=== PATIENT | male | born 1970 | race African-American/Black ===

== ENCOUNTER 2020-12-30 17:24 | Emergency (ER) | payer OTHER ==
[~2020-12-30] VITALS: Ht 175.3 cm; Wt 66.2 kg
[2020-12-30 19:04] LABS: BASOPHILS # (AUTO) 0.1 /CMM (0.0-0.2); BASOPHILS % (AUTO) 1.1 % (0.0-2.0); EOSINOPHILS % (AUTO) 3.7 % (0.0-6.0); HEMATOCRIT 40 % (39-51); HEMOGLOBIN 12.7 g/dL (13.5-17.5); LYMPHOCYTES # (AUTO) 1.8 /CMM (0.8-4.8); LYMPHOCYTES % (AUTO) 24.9 % (20.0-44.0); MEAN CORPUSCULAR HGB CONC 32 g/dl (31.0-36.0); MEAN CORPUSCULAR VOLUME 87 fL (80-96); MONOCYTES # (AUTO) 0.8 /CMM (0.1-1.30); MONOCYTES % (AUTO) 11.4 % (2.0-12.0); NEUTROPHILS # (AUTO) 4.3 /CMM (1.8-8.9); NEUTROPHILS % (AUTO) 58.9 % (43.0-81.0); PLATELET COUNT (AUTO) 377 /CMM (150-450); RED BLOOD CELL COUNT(AUTO) 4.57 MIL/uL (4.5-6.0); WHITE BLOOD COUNT (AUTO) 7.2 K/uL (4.3-11.0)
[2020-12-30 19:09] LABS: BILIRUBIN,URINE Negative (NEGATIVE); COLOR,URINE YELLOW (YELLOW); LEUKOCYTE ESTERASE ,URINE Negative (NEGATIVE); NITRITE, URINE Negative (NEGATIVE); PROTEIN,URINE Negative (NEGATIVE); UGLUCOSE Negative (NEGATIVE)
--- NOTE | 2020-12-30 19:13 | NUR ---
Patient came in to the er c/o SI run in front of a bus. On room air, breathing evenly and unlabored. Kept comfortable, will continue to monitor accordingly.
--- NOTE | 2020-12-30 19:14 | NUR ---
urine collected and sent to lab
[2020-12-30 19:17] LABS: ALANINE AMINOTRANSFERASE 25 U/L (12-78); ALBUMIN 3.5 g/dL (3.4-5.0); ALCOHOL, BLOOD < 3 mg/dL (0-0); ALKALINE PHOSPHATASE 102 U/L (46-116); ASPARTATE AMINOTRANSFERASE 16 U/L (15-37); BILIRUBIN,DIRECT 0.1 mg/dL (0.0-0.2); BILIRUBIN,TOTAL 0.2 mg/dL (0.2-1.0); CALCIUM, SERUM 9.5 mg/dL (8.5-10.1); CARBON DIOXIDE 31 mmol/L (21-32); CHLORIDE 99 mmol/L (98-107); CREATININE 1.2 mg/dL (0.6-1.3); GLUCOSE 130 mg/dL (74-106); SODIUM SERUM 140 mmol/L (136-145); TOTAL PROTEIN, SERUM 7.5 g/dL (6.4-8.2); UREA NITROGEN, BLOOD 20 mg/dL (7-18)
[2020-12-30 19:24] LABS: ACETAMINOPHEN < 2 ug/ml (10-30)
--- NOTE | 2020-12-30 20:03 | NUR ---
FACESHEET AND CLINICALS FAXED TO [facility].
--- NOTE | 2020-12-30 21:03 | NUR ---
CALL FROM [facility] INTAKE. [facility] [address] PECK. # FOR REPORT [phone].
--- NOTE | 2020-12-30 21:38 | NUR ---
[facility] CALL THE CAR CALLED FOR TRANSPORT. TRIP# [id number]
[2020-12-30 21:49] VITALS: BP 137/68
--- NOTE | 2020-12-30 21:49 | NUR ---
REPORT GIVEN TO MATA FLORENTINO. AWAITING TRANSPORT.
--- NOTE | 2020-12-30 22:23 | NUR ---
[facility] ETA 1081
--- NOTE | 2020-12-30 23:22 | NUR ---
[facility] AT BEDSIDE REPORT GIVEN TO EMT.
== END 2020-12-30 23:24 ==
LOC: ER 17:29
DX: R45.851 Suicidal ideations (principal); F14.10 Cocaine abuse, uncomplicated; E11.9 Type 2 diabetes mellitus without complications; R94.31 Abnormal electrocardiogram [ECG] [EKG]; Z82.49 Family history of ischemic heart disease and other diseases of the circulatory system; F32.9 Major depressive disorder, single episode, unspecified
CPT/HCPCS: 36415; 80048; 80076; 80299; 80307; 80320; 81003; 84484; 85025; 87426; 93005; 99285; C9803; G0480

== ENCOUNTER 2021-05-22 01:10 | Emergency (ER) | payer OTHER ==
[~2021-05-22] VITALS: Ht 175.3 cm; Wt 77.1 kg
--- NOTE | 2021-05-22 01:25 | NUR ---
URINE SAMPLE COLLECTED AND SENT TO LAB
--- NOTE | 2021-05-22 01:27 | NUR ---
[facility] AT BEDSIDE FOR BLOOD DRAW.
[2021-05-22 01:39] LABS: BASOPHILS # (AUTO) 0.1 K/uL (0.0-0.2); BASOPHILS % (AUTO) 0.8 % (0.0-2.0); EOSINOPHILS % (AUTO) 3.3 % (0.0-6.0); HEMATOCRIT 38 % (39-51); HEMOGLOBIN 12.2 g/dL (13.5-17.5); LYMPHOCYTES # (AUTO) 2.4 K/uL (0.8-4.8); MEAN CORPUSCULAR HGB CONC 32 g/dl (31.0-36.0); MEAN CORPUSCULAR VOLUME 87 fL (80-96); MONOCYTES # (AUTO) 1.1 K/uL (0.1-1.30); MONOCYTES % (AUTO) 11.4 % (2.0-12.0); NEUTROPHILS % (AUTO) 60.5 % (43.0-81.0); PLATELET COUNT (AUTO) 381 K/uL (150-450); RED BLOOD CELL COUNT(AUTO) 4.34 MIL/uL (4.5-6.0)
[2021-05-22 01:49] LABS: BILIRUBIN,URINE Negative (NEGATIVE); COLOR,URINE YELLOW (YELLOW); LEUKOCYTE ESTERASE ,URINE Negative (NEGATIVE); NITRITE, URINE Negative (NEGATIVE); PROTEIN,URINE Negative (NEGATIVE); UGLUCOSE Negative (NEGATIVE)
[2021-05-22 01:55] LABS: CALCIUM, SERUM 8.6 mg/dL (8.5-10.1); CARBON DIOXIDE 30 mmol/L (21-32); CHLORIDE 104 mmol/L (98-107); GLUCOSE 215 mg/dL (74-106); SODIUM SERUM 142 mmol/L (136-145); UREA NITROGEN, BLOOD 17 mg/dL (7-18)
[2021-05-22 01:59] LABS: ALANINE AMINOTRANSFERASE 35 U/L (12-78); ALBUMIN 3.5 g/dL (3.4-5.0); ALCOHOL, BLOOD < 3 mg/dL (0-0); ALKALINE PHOSPHATASE 177 U/L (46-116); ASPARTATE AMINOTRANSFERASE 34 U/L (15-37); BILIRUBIN,DIRECT 0.1 mg/dL (0.0-0.2); BILIRUBIN,TOTAL 0.3 mg/dL (0.2-1.0); TOTAL PROTEIN, SERUM 7.5 g/dL (6.4-8.2)
[2021-05-22 02:03] LABS: ACETAMINOPHEN 0 ug/ml (10-30)
--- NOTE | 2021-05-22 03:51 | NUR ---
CLINICAL AND FACESHEET FAXED TO [facility] INTAKE FOR VOLUNTARY PSYCH ADMISSION.
--- NOTE | 2021-05-22 05:45 | NUR ---
TRANSFER INFORMATION PT ACCEPTED AT [facility] ACCEPTING MD EL PT WILL GO TO UNIT 2 PHONE NUMBER FOR REPORT PLEASE CALL REPORT AT 8AM
--- NOTE | 2021-05-22 07:19 | NUR ---
[facility] CALL THE CAR CALLED FOR TRANSPORT. TRIP# [id number]. [facility] ETA 1000
--- NOTE | 2021-05-22 07:30 | NUR ---
THE PATIENT ALERT AND ORIENTED X3. DENIES PAIN. IN ROOM AIR AND DENIES SOB. RESPIRATION REGULAR AND UNLABORED. WILL CONTINUE TO MONITOR THE PATIENT. SITTER AT THE BEDSIDE.
--- NOTE | 2021-05-22 07:52 | NUR ---
THE PATIENT HAVING BREAKFAST. TOLERATES PROVIDED MEAL WELL.
--- NOTE | 2021-05-22 08:00 | NUR ---
REPORT GIVEN NURSE MARGOTH
--- NOTE | 2021-05-22 10:26 | NUR ---
Accounting Reconciliation Clerk Note: Per nursing, patient was already referred and accepted to [facility] for inpatient psychiatric hospitalization, voluntary admission. Ambulance was at bedside to transport patient to [facility]. No further SS interventions needed at this time.
--- NOTE | 2021-05-22 10:28 | NUR ---
THE PATIENT IS TRANSFERED TO [facility] IN STABLE CONDITION VIA ARRANGED TRANSPO.
[2021-05-22 10:30] VITALS: BP 132/67
== END 2021-05-22 10:30 ==
LOC: ER 01:15
DX: R45.851 Suicidal ideations (principal); E11.9 Type 2 diabetes mellitus without complications; F32.9 Major depressive disorder, single episode, unspecified; Z20.822 Contact with and (suspected) exposure to COVID-19
CPT/HCPCS: 36415; 80048; 80076; 80143; 80307; 80320; 81003; 85025; 87426; 99285; C9803; G0480

== ENCOUNTER 2021-07-15 09:29 | Emergency (ER) | payer OTHER ==
[~2021-07-15] VITALS: Ht 175.3 cm; Wt 79.4 kg
[2021-07-15 09:34] VITALS: BP 135/81
[2021-07-15 10:33] LABS: BASOPHILS # (AUTO) 0.1 K/uL (0.0-0.2); BASOPHILS % (AUTO) 0.5 % (0.0-2.0); EOSINOPHILS % (AUTO) 2.2 % (0.0-6.0); HEMATOCRIT 41 % (39-51); MEAN CORPUSCULAR HGB CONC 32 g/dl (31.0-36.0); MEAN CORPUSCULAR VOLUME 88 fL (80-96); MONOCYTES # (AUTO) 0.9 K/uL (0.1-1.30); MONOCYTES % (AUTO) 9.4 % (2.0-12.0); NEUTROPHILS # (AUTO) 6.3 K/uL (1.8-8.9); NEUTROPHILS % (AUTO) 66.9 % (43.0-81.0); PLATELET COUNT (AUTO) 353 K/uL (150-450); WHITE BLOOD COUNT (AUTO) 9.4 K/uL (4.3-11.0)
[2021-07-15 10:35] LABS: BILIRUBIN,URINE NEGATIVE (NEGATIVE); COLOR,URINE YELLOW (YELLOW); LEUKOCYTE ESTERASE ,URINE NEGATIVE (NEGATIVE); NITRITE, URINE NEGATIVE (NEGATIVE); PROTEIN,URINE NEGATIVE (NEGATIVE); UGLUCOSE >=1000 mg/dL (NEGATIVE)
[2021-07-15 10:43] LABS: CALCIUM, SERUM 8.9 mg/dL (8.5-10.1); CARBON DIOXIDE 28 mmol/L (21-32); CHLORIDE 101 mmol/L (98-107); GLUCOSE 343 mg/dL (74-106); POTASSIUM 3.8 mmol/L (3.5-5.1); SODIUM SERUM 136 mmol/L (136-145); UREA NITROGEN, BLOOD 13 mg/dL (7-18)
[2021-07-15 10:49] LABS: ALANINE AMINOTRANSFERASE 26 U/L (12-78); ALBUMIN 4.1 g/dL (3.4-5.0); ALCOHOL, BLOOD < 3 mg/dL (0-0); ALKALINE PHOSPHATASE 157 U/L (46-116); ASPARTATE AMINOTRANSFERASE 13 U/L (15-37); BILIRUBIN,DIRECT 0.1 mg/dL (0.0-0.2); BILIRUBIN,TOTAL 0.5 mg/dL (0.2-1.0)
[2021-07-15 10:50] LABS: ACETAMINOPHEN < 10 ug/ml (10-30)
[2021-07-15] MEDS ORDERED: METFORMIN 500 MG TABLET PO ONE (11:00)
[2021-07-15] MEDS ORDERED: METFORMIN 500 MG TABLET ONE (11:01)
--- NOTE | 2021-07-15 11:13 | NUR ---
Patient came in to the er c/o +SI "i want to jump in front of the bus", [facility] to [facility]. On room air, breathing evenly and unlabored. Kept comfortable, will continue to montior accordingly.
--- NOTE | 2021-07-15 11:35 | NUR ---
SS Consult: SS Consult requested for SI, drug abuse & homelessness. The pt. is a 51- year old Black male who presents to ED with C/O suicidal ideations for th past few days with plan to "jump off a bridge or run into moving traffic". The pt. appears unkempt is A&O X4 and makes poor eye contact. The pt. has blood shot eyes and probably under the influence. Pt.'s mood is depressed with flat affect. Pt. denies visual hallucinations and states he is hearing voices telling him to "kill myself". Pt. denies HI. RANULFO offered pt. voluntary admission to a psych facility for treatment and pt. is agreeable. RANULFO explored pt.'s mental health Hx. Pt. states he has been diagnosed in the past with a mental illness and does not remember the diagnosis. RANULFO explored pt.'s living situation. Pt. admits he has been experiencing homelessness for the past "few months". RANULFO explored pt.'s drug & ETOH use. Patient stated he uses Cocaine daily. RANULFO provided addiction resources and he accepted them. Pt. states he is ambulatory. RANULFO explored pt.'s support system. Pt. states he has no support system. Pt. states he receives Food stamps & General Relief. Plan: RANULFO referred pt. to [facility] for inpatient psychiatric treatment. Pt. refused to sign homeless waiver and it was placed in the chart. RANULFO provided pt. with homeless, and addiction resources and he accepted them : Year-round shelters: [facility] [place] [address] [place] [address] ; [place] [facility] [place] [address] [place] [address]; [facility] [id number] [facility] [address] Winter Shelters: [facility]Parrot Provider: [facility] [place] [place] Address: [address] [place], [address] # of Beds: 47 Population Served: [facility] 6 | [facility] Luly Yates Tanya Provider: [facility] Address: [address] [facility], [address] # of Beds: 66 Population Served: [facility] [place] Provider: First to Serve Address: [address] [facility], [address] # of Beds: 56 Population Served: [facility] [place] Provider: /Ms. [facility] Address: [address] [facility], [address] # of Beds: 49 Population Served: Coed SPA 8 | [facility] Provider: First to Serve Address: [address] [facility]. [place], [address] # of Beds: 37 Population Served: Coed Hygiene: [facility]: [address] [facility] ; [facility] [address] [facility] ; [facility] [address] [facility] [place] . Food Resources: [facility] at [facility]- [address] [facility]; Meet Each Need with Dignity ([facility]) [address] [facility]; [facility] Food Pantry [address] [facility]; [facility] 8[address] [facility]. Mental Health resources provided: [facility] [address] [place], [place] [phone] ; [facility] [address] [facility] [address], [place], [place] [phone] ; Rowena Haley [facility] [address] [place] [address] ; [facility] [address] [place], [place] [phone] Healthcare Clinics: [facility] [address] [facility], [address] [place]. [place] ; [facility] [address] [facility] [address] [place] [address]; [facility] [address] [facility] [place] [address] [phone]) [phone] Counseling--[facility] [address], [address] [place], [place] [address] (Specializes in in-depth psychotherapy for emotional distress: anxiety, depression, interpersonal conflicts, life transitions, childhood abuse) [facility] [address] [place] [address] (Assist with solving problem marital difficulties, separation & divorce, aging parents, & grief, chronic & terminal illness) [facility] [address] [place] [address] (Deal with loss & grief, anxiety, marital difficulties) Homebound/Mental Health Services [address] [facility] [address] [place] [address] (Provide in-home mental services to people who are incapable of leaving their homes) Organization for Needs of the Elderly Senior Service/Resource Center [address] [place] [address] [facility] [address] [place], [place] [address] PSYCHIATRIC OUTPATIENT SERVICES [facility] Partial Hospitalization and Intensive Outpatient Program (Managed Care and [place] Only)[address] Critical access hospital [phone] [facility] Partial Hospitalization and Outpatient Gvosaja36956 [facility] [address] [place], [place] [phone] [facility] Mental Health [place] Pjz[address] [facility] [address] [place], [place] [phone] [facility] Partial Hospitalization and Outpatient [id number] [place], [phone] Substance Abuse resources provided included: [facility] Substance Abuse Self-Helpline (SAS) ; CRI -HELP [address] [facility]. [place] [address] ; [facility] [address] [facility] [address] ; [facility] [address] [place] [address] ; [facility] [address] [facility] [address] ; [facility] 49[address] [facility] [address] ; [facility] 909 [facility] [phone] ; [facility] Substance Abuse Helpline(SAS)[facility] ; [facility] ; [facility] [place]; [facility] [place]; [facility] [place]; [facility] [place] Red; [facility] [place]; [facility] [place]; [facility] [place]; [facility]'s [place], [facility]. [place]; Alcoholics Anonymous -SFV; Ll-Nrda-Mywmndc ; Marijuana Anonymous -SFV; Na
--- NOTE | 2021-07-15 11:46 | NUR ---
FAXED CLINICALS TO [facility] INTAKE COIVD RESULT PENDING.
[2021-07-15 11:57] LABS: BACTERIA,URINE None seen /HPF (None Seen); RBC,URINE 0-2 /HPF (0-2); SQUAMOUS EPITHELIAL CELL,UR Rare /HPF (None Seen); WBC,URINE 0-2 /HPF (0-3)
--- NOTE | 2021-07-15 12:23 | NUR ---
RE-FAXED FACE SHEET TO [facility]
--- NOTE | 2021-07-15 13:55 | NUR ---
FAXED ALL CLINICALS TO [facility] INTAKE AGAIN.
[2021-07-15] MEDS ORDERED: INSULIN REGULAR, HUMAN 100 UNIT/ML 10 ML VIAL ONE (14:16)
[2021-07-15] MEDS ORDERED: INSULIN REGULAR, HUMAN 100 UNIT/ML 10 ML VIAL SQ ONE (14:30)
--- NOTE | 2021-07-15 19:04 | NUR ---
FAXED NEW CLINICALS TO [facility] BIPIN PRICE.
--- NOTE | 2021-07-16 01:19 | NUR ---
CALLED ART FROM [facility] INTAKE, WILL CALL BACK REGARDING BG.
--- NOTE | 2021-07-16 02:25 | NUR ---
ACCEPTED TO [facility] MD NUMBER [phone] UNIT 2
--- NOTE | 2021-07-16 02:28 | NUR ---
1 HOUR TO 1.5 HOUR FOR TRANSPORT VIA [facility] AT [facility].
--- NOTE | 2021-07-16 02:38 | NUR ---
try to call so bar[facility] to give report but was on hold for more than 5 mins will call again after
--- NOTE | 2021-07-16 03:01 | NUR ---
REPORT GIVEN TO MENDEZ COELLO FOR EBONY
--- NOTE | 2021-07-16 03:50 | NUR ---
REPORT GIVEN TO EMT, PT TRANSFERED.
== END 2021-07-16 04:35 ==
LOC: ER 09:33
DX: R45.851 Suicidal ideations (principal); F14.10 Cocaine abuse, uncomplicated; E11.9 Type 2 diabetes mellitus without complications; Z20.822 Contact with and (suspected) exposure to COVID-19
CPT/HCPCS: 36415; 80048; 80076; 80143; 80307; 80320; 81001; 82962 ×3; 85025; 87426; 96372; 99285; C9803; J1815; G0480

== ENCOUNTER 2021-07-21 19:15 | Emergency (ER) | payer OTHER ==
[~2021-07-21] VITALS: Ht 175.3 cm; Wt 63.5 kg
[2021-07-21 22:33] LABS: BASOPHILS # (AUTO) 0.1 K/uL (0.0-0.2); BASOPHILS % (AUTO) 0.8 % (0.0-2.0); EOSINOPHILS % (AUTO) 1.8 % (0.0-6.0); HEMATOCRIT 35 % (39-51); LYMPHOCYTES % (AUTO) 26.9 % (20.0-44.0); MEAN CORPUSCULAR HGB CONC 32 g/dl (31.0-36.0); MEAN CORPUSCULAR VOLUME 87 fL (80-96); MONOCYTES # (AUTO) 1.7 K/uL (0.1-1.30); MONOCYTES % (AUTO) 15.1 % (2.0-12.0); NEUTROPHILS # (AUTO) 6.2 K/uL (1.8-8.9); NEUTROPHILS % (AUTO) 55.4 % (43.0-81.0); PLATELET COUNT (AUTO) 365 K/uL (150-450); WHITE BLOOD COUNT (AUTO) 11.2 K/uL (4.3-11.0)
--- NOTE | 2021-07-21 22:47 | NUR ---
BIBS WALKED IN TO ER. TO ER BED 20. AAOX4. NOT IN RESP DISTRESS. AMBULATORY. CAME IN FOR SUICIDAL IDEATION WITH PLAN TO RUN INTO TRAFFIC. PT DENIES HOMICIDAL IDEATION. DENIES BOTH VISUAL NOR AUDITORY HALLUCINATIONS. PT'S IS GOWN, BELONGINGS PLACED IN LOCKER AND SITTER WITH IN SIGHT. WAS AT THE BEDSIDE FOR EVAL. ORDERS RE CEIVED, NOTED AND CARRIED OUT. URINE COLLECTED AND SENT TO LAB
[2021-07-21 23:08] LABS: BILIRUBIN,DIRECT 0.1 mg/dL (0.0-0.2); BILIRUBIN,TOTAL 0.4 mg/dL (0.2-1.0); CALCIUM, SERUM 8.5 mg/dL (8.5-10.1); CARBON DIOXIDE 25 mmol/L (21-32); CHLORIDE 104 mmol/L (98-107); CREATININE 1.2 mg/dL (0.6-1.3); GLUCOSE 325 mg/dL (74-106); POTASSIUM 4.3 mmol/L (3.5-5.1); SODIUM SERUM 138 mmol/L (136-145); UREA NITROGEN, BLOOD 19 mg/dL (7-18)
[2021-07-21 23:09] LABS: ACETAMINOPHEN < 2 ug/ml (10-30); ALANINE AMINOTRANSFERASE 24 U/L (12-78); ALBUMIN 3.5 g/dL (3.4-5.0); ALCOHOL, BLOOD < 3 mg/dL (0-0); ALKALINE PHOSPHATASE 207 U/L (46-116); ASPARTATE AMINOTRANSFERASE 16 U/L (15-37); TOTAL PROTEIN, SERUM 7.4 g/dL (6.4-8.2)
[2021-07-21 23:16] LABS: EOSINOPHILS % (MANUAL) 3 % (0-4); LYMPHOCYTES % (MANUAL) 35 % (16-48); MONOCYTES % (MANUAL) 13 % (0-11.0); NEUTROPHILS % (MANUAL) 49 (42-76)
[2021-07-21 23:34] LABS: BILIRUBIN,URINE NEGATIVE (NEGATIVE); COLOR,URINE YELLOW (YELLOW); LEUKOCYTE ESTERASE ,URINE NEGATIVE (NEGATIVE); NITRITE, URINE NEGATIVE (NEGATIVE); PROTEIN,URINE NEGATIVE (NEGATIVE); UGLUCOSE 500 MG/DL mg/dL (NEGATIVE)
[2021-07-21 23:37] LABS: BACTERIA,URINE None seen /HPF (None Seen); MUCUS,URINE Few /LPF (None Seen); RBC,URINE 0-2 /HPF (0-2); SQUAMOUS EPITHELIAL CELL,UR Few /HPF (None Seen); WBC,URINE 0-2 /HPF (0-3)
[2021-07-22] MEDS ORDERED: METFORMIN 850 MG TABLET PO ONE
[2021-07-22] MEDS ORDERED: METFORMIN 850 MG TABLET ONE (00:08)
--- NOTE | 2021-07-22 00:45 | NUR ---
Patient is resting comfortably in bed with eyes closed. Easily aroused. VSS
--- NOTE | 2021-07-22 02:35 | NUR ---
pt sleeping, attached to monitor and pox, vss
--- NOTE | 2021-07-22 04:15 | NUR ---
Patient is resting comfortably in bed with eyes closed. Easily aroused. VSS
--- NOTE | 2021-07-22 06:30 | NUR ---
Patient is resting comfortably in bed with eyes closed. Easily aroused. VSS
--- NOTE | 2021-07-22 15:27 | NUR ---
RANULFO called [facility] regarding status of admission and they stated that the pt.'s blood sugar levels are too high and would like updated levels to be faxed to them. RANULFO called ED and informed Jovan COELLO who will follow up.
[2021-07-22] MEDS ORDERED: LEVO25TA9 PO (17:28)
[2021-07-22] MEDS ORDERED: GLIP5TAB13 PO (17:28)
[2021-07-22] MEDS ORDERED: METF-442 PO (17:28)
[2021-07-22] MEDS ORDERED: INSULIN REGULAR, HUMAN 100 UNIT/ML 10 ML VIAL SQ ONE (17:30)
--- NOTE | 2021-07-22 18:51 | NUR ---
Accepted [facility] under the care of Dr. Padron
--- NOTE | 2021-07-22 18:55 | NUR ---
[facility] CALL[facility] ETA IS 45 MINS.
--- NOTE | 2021-07-22 18:56 | NUR ---
report given to Tho COELLO for franklyn.
--- NOTE | 2021-07-22 19:54 | NUR ---
[facility] AT [facility]EDSIDE FOR [facility]. PT IS IN STABLE CONDITION FOR TRANSPORT. PT IS AMBULATORY ON STEADY GAIT. REPORT GIVEN .
[2021-07-22 19:56] VITALS: BP 116/68
== END 2021-07-22 21:54 ==
LOC: ER 19:20
DX: R45.851 Suicidal ideations (principal); F14.10 Cocaine abuse, uncomplicated; D64.9 Anemia, unspecified; Z59.00 Homelessness unspecified; F17.200 Nicotine dependence, unspecified, uncomplicated; E11.65 Type 2 diabetes mellitus with hyperglycemia; Z20.822 Contact with and (suspected) exposure to COVID-19
CPT/HCPCS: 36415; 80048; 80076; 80143; 80307; 80320; 81001; 82962 ×2; 85007; 85025; 87426; 96372; 99285; C9803; J1815; G0480

== ENCOUNTER 2022-06-08 08:03 | Emergency (ER) | payer OTHER ==
[~2022-06-08] VITALS: Ht 175.3 cm; Wt 77.1 kg
[~2022-06-08 08:03] MED LIST: GLIP5TAB13 PO; LEVO25TA9 PO; METF-442 PO
[2022-06-08] MEDS ORDERED: ARIPIPRAZOLE 5 MG TABLET PO ONE (09:00)
[2022-06-08] MEDS ORDERED: ARIP5TAB10 PO (09:02)
[2022-06-08 09:25] LABS: BASOPHILS % (AUTO) 0.5 % (0.0-2.0); HEMATOCRIT 36 % (39-51); HEMOGLOBIN 11.4 g/dL (13.5-17.5); LYMPHOCYTES # (AUTO) 1.5 K/uL (0.8-4.8); LYMPHOCYTES % (AUTO) 14.1 % (20.0-44.0); MEAN CORPUSCULAR HGB CONC 32 g/dl (31.0-36.0); MEAN CORPUSCULAR VOLUME 85 fL (80-96); MONOCYTES # (AUTO) 1.2 K/uL (0.1-1.30); MONOCYTES % (AUTO) 11.1 % (2.0-12.0); NEUTROPHILS # (AUTO) 7.7 K/uL (1.8-8.9); NEUTROPHILS % (AUTO) 73.3 % (43.0-81.0); PLATELET COUNT (AUTO) 356 K/uL (150-450); RED BLOOD CELL COUNT(AUTO) 4.24 MIL/uL (4.5-6.0); WHITE BLOOD COUNT (AUTO) 10.5 K/uL (4.3-11.0)
[2022-06-08 09:40] LABS: BILIRUBIN,URINE NEGATIVE (NEGATIVE); COLOR,URINE YELLOW (YELLOW); LEUKOCYTE ESTERASE ,URINE NEGATIVE (NEGATIVE); NITRITE, URINE NEGATIVE (NEGATIVE); PROTEIN,URINE NEGATIVE (NEGATIVE); UGLUCOSE >=1000 mg/dL (NEGATIVE)
[2022-06-08 09:46] LABS: ALANINE AMINOTRANSFERASE 22 U/L (12-78); ALBUMIN 3.8 g/dL (3.4-5.0); ALCOHOL, BLOOD < 3 mg/dL (0-0); ALKALINE PHOSPHATASE 109 U/L (46-116); ASPARTATE AMINOTRANSFERASE 13 U/L (15-37); BILIRUBIN,DIRECT 0.2 mg/dL (0.0-0.2); BILIRUBIN,TOTAL 0.8 mg/dL (0.2-1.0); CALCIUM, SERUM 9.1 mg/dL (8.5-10.1); CARBON DIOXIDE 28 mmol/L (21-32); CHLORIDE 96 mmol/L (98-107); CREATININE 1.2 mg/dL (0.6-1.3); POTASSIUM 4.2 mmol/L (3.5-5.1); SODIUM SERUM 132 mmol/L (136-145); TOTAL PROTEIN, SERUM 7.9 g/dL (6.4-8.2); UREA NITROGEN, BLOOD 22 mg/dL (7-18)
[2022-06-08 09:54] LABS: ACETAMINOPHEN 0 ug/ml (10-30)
[2022-06-08 09:55] LABS: GLUCOSE 454 mg/dL (74-106)
--- NOTE | 2022-06-08 10:00 | NUR ---
PT MADE AWARE OF HIGH GLUCOSE LEVEL. STATES HE SUPOSSED TO TAKE ORAL DM MEDS.
[2022-06-08 10:08] LABS: BACTERIA,URINE None seen /HPF (None Seen); RBC,URINE 0-2 /HPF (0-2); SQUAMOUS EPITHELIAL CELL,UR Rare /HPF (None Seen); WBC,URINE 0-2 /HPF (0-3)
[2022-06-08] MEDS ORDERED: INSULIN REGULAR, HUMAN 100 UNIT/ML 10 ML VIAL SQ ONE (10:30)
[2022-06-08] MEDS ORDERED: INSULIN REGULAR, HUMAN 100 UNIT/ML 10 ML VIAL ONE (10:35)
--- NOTE | 2022-06-08 12:16 | NUR ---
RANULFO faxed clinicals to [facility] [[address] [place] [address] FAX:[phone]] for voluntary psychiatric treatment.
--- NOTE | 2022-06-08 12:56 | NUR ---
PT'S ACCU-CHECK BLOOD GLUCOSE 403, DR. MULTANI MADE AWARE.
[2022-06-08] MEDS ORDERED: INSULIN REGULAR, HUMAN 100 UNIT/ML 10 ML VIAL IV ONE (13:00)
[2022-06-08] MEDS ORDERED: IV NS 0.9% 1,000 ML IV ONE ×2 (13:00)
--- NOTE | 2022-06-08 13:42 | NUR ---
IV LINE INSERTED ON RAC #20
--- NOTE | 2022-06-08 16:02 | NUR ---
BS 203
--- NOTE | 2022-06-08 18:23 | NUR ---
IV removed. Catheter intact and site benign. Pressure and 4x4 applied to site. No bleeding noted.
[2022-06-08 23:25] VITALS: BP 141/85
--- NOTE | 2022-06-08 23:30 | NUR ---
PT GOING TO [facility] UNDER DR MURILLO. NUMBER FOR REPORT IS [phone].
--- NOTE | 2022-06-08 23:36 | NUR ---
[facility] ETA : 45 MIN
--- NOTE | 2022-06-09 00:15 | NUR ---
REPORT GIVEN TO ADIS COELLO FOR EBONY
--- NOTE | 2022-06-09 00:18 | NUR ---
[facility] AT BED SIDE TO [place] UP THE PT
--- NOTE | 2022-06-09 00:27 | NUR ---
TRANSFERRED TO [facility] IN STABLE CONDITIONS. BELONGINGS WERE PICKED UP WITH THE PT.
== END 2022-06-09 00:33 ==
LOC: ER 08:10
DX: R45.851 Suicidal ideations (principal); F14.10 Cocaine abuse, uncomplicated; E11.65 Type 2 diabetes mellitus with hyperglycemia; Z79.84 Long term (current) use of oral hypoglycemic drugs; Z59.00 Homelessness unspecified; Z20.822 Contact with and (suspected) exposure to COVID-19
CPT/HCPCS: 99285; 96372; 96374; 96361; 85025; 80048; 80076; 81001; 36415; 82962 ×2; 87426; 80143; 80320; 80307; J1815; J7030; C9803; G0480

== ENCOUNTER 2022-06-22 09:00 | Emergency (ER) | payer OTHER ==
[~2022-06-22] VITALS: Ht 175.3 cm; Wt 68.0 kg
[~2022-06-22 09:00] MED LIST changes: +ARIP5TAB10 PO
--- NOTE | 2022-06-22 09:17 | NUR ---
COVID SWAB AND URINE SAMPLE COLLECTED AND SENT TO LAB
[2022-06-22 10:03] LABS: BILIRUBIN,URINE NEGATIVE (NEGATIVE); COLOR,URINE YELLOW (YELLOW); LEUKOCYTE ESTERASE ,URINE NEGATIVE (NEGATIVE); NITRITE, URINE NEGATIVE (NEGATIVE); PROTEIN,URINE NEGATIVE (NEGATIVE); UGLUCOSE >=1000 mg/dL (NEGATIVE)
[2022-06-22 10:24] LABS: BACTERIA,URINE None seen /HPF (None Seen); RBC,URINE 0-2 /HPF (0-2); SQUAMOUS EPITHELIAL CELL,UR Rare /HPF (None Seen); WBC,URINE 0-2 /HPF (0-3)
[2022-06-22 10:25] LABS: BASOPHILS % (AUTO) 0.2 % (0.0-2.0); EOSINOPHILS % (AUTO) 1.7 % (0.0-6.0); HEMATOCRIT 31 % (39-51); HEMOGLOBIN 9.4 g/dL (13.5-17.5); LYMPHOCYTES # (AUTO) 1.2 K/uL (0.8-4.8); LYMPHOCYTES % (AUTO) 14.1 % (20.0-44.0); MEAN CORPUSCULAR HGB CONC 31 g/dl (31.0-36.0); MEAN CORPUSCULAR VOLUME 90 fL (80-96); MONOCYTES # (AUTO) 1.1 K/uL (0.1-1.30); MONOCYTES % (AUTO) 13.1 % (2.0-12.0); NEUTROPHILS % (AUTO) 70.9 % (43.0-81.0); PLATELET COUNT (AUTO) 343 K/uL (150-450); RED BLOOD CELL COUNT(AUTO) 3.43 MIL/uL (4.5-6.0); WHITE BLOOD COUNT (AUTO) 8.5 K/uL (4.3-11.0)
[2022-06-22 10:38] LABS: ALANINE AMINOTRANSFERASE 23 U/L (12-78); ALBUMIN 3.4 g/dL (3.4-5.0); ALKALINE PHOSPHATASE 170 U/L (46-116); ASPARTATE AMINOTRANSFERASE 14 U/L (15-37); BILIRUBIN,DIRECT 0.1 mg/dL (0.0-0.2); BILIRUBIN,TOTAL 0.3 mg/dL (0.2-1.0); CALCIUM, SERUM 8.8 mg/dL (8.5-10.1); CARBON DIOXIDE 25 mmol/L (21-32); CHLORIDE 105 mmol/L (98-107); CREATININE 1.1 mg/dL (0.6-1.3); POTASSIUM 4.3 mmol/L (3.5-5.1); SODIUM SERUM 139 mmol/L (136-145); UREA NITROGEN, BLOOD 12 mg/dL (7-18)
[2022-06-22 10:42] LABS: ACETAMINOPHEN 0 ug/ml (10-30)
[2022-06-22 10:43] LABS: ALCOHOL, BLOOD < 3 mg/dL (0-0)
[2022-06-22 10:44] LABS: GLUCOSE 470 mg/dL (74-106)
[2022-06-22] MEDS ORDERED: INSULIN REGULAR, HUMAN 100 UNIT/ML 10 ML VIAL ONE (11:53)
[2022-06-22] MEDS: INSULIN REGULAR, HUMAN 100 UNIT/ML 10 ML VIAL SQ ONE (11:56)
[2022-06-22] MEDS: IV NS 0.9% 1,000 ML IV ONE (12:05)
--- NOTE | 2022-06-22 17:52 | NUR ---
MEDICALLY CLEARED. FACESHEET, CL[facility]
[2022-06-23] MEDS ORDERED: INSULIN REGULAR, HUMAN 100 UNIT/ML 10 ML VIAL ONE (02:57)
[2022-06-23] MEDS: IV NS 0.9% 1,000 ML BAG IV ONE (03:08)
[2022-06-23] MEDS: INSULIN REGULAR, HUMAN 100 UNIT/ML 10 ML VIAL IV ONE (03:09)
--- NOTE | 2022-06-23 04:16 | NUR ---
ACCEPTED AT [facility] UNDER DR. VILLALOBOS # FOR REPORT [phone] EXT [phone] PER MAHAMED
--- NOTE | 2022-06-23 04:19 | NUR ---
PT WILL BE TRANSPORTED TO [facility] IN 10 TO 15 MINUTES [facility]IA [facility].
--- NOTE | 2022-06-23 04:50 | NUR ---
Patient discharged In stable condition. PT denied SI/ HI Written and verbal after care instructions given. Patient verbalizes understanding of instruction. IV removed. Catheter intact and site benign. Pressure and 4x4 applied to site. No bleeding noted. Pt ambulatory with a steady gait
[2022-06-23 04:51] VITALS: BP 112/61
== END 2022-06-23 04:53 ==
LOC: ER 09:12
DX: R45.851 Suicidal ideations (principal); F14.10 Cocaine abuse, uncomplicated; Z59.00 Homelessness unspecified; Z20.822 Contact with and (suspected) exposure to COVID-19; D64.9 Anemia, unspecified; F17.200 Nicotine dependence, unspecified, uncomplicated; E11.65 Type 2 diabetes mellitus with hyperglycemia; Z79.84 Long term (current) use of oral hypoglycemic drugs
CPT/HCPCS: 99285; 96372; 96361 ×2; 85025; 80048; 80076; 81001; 36415; 82962 ×4; 87426; 80143; 80320; 80307; 96374; J1815 ×2; J7030 ×2; C9803; G0480

== ENCOUNTER 2024-03-25 18:36 | Emergency (ER) | payer OTHER ==
[~2024-03-25] VITALS: Ht 175.3 cm; Wt 79.4 kg
[2024-03-25 19:04] LABS: BASOPHILS # (AUTO) 0.1 K/uL (0.0-0.2); BASOPHILS % (AUTO) 0.8 % (0.0-2.0); EOSINOPHILS # (AUTO) 0.3 K/uL (0.0-0.7); EOSINOPHILS % (AUTO) 3.1 % (0.0-6.0); HEMATOCRIT 37 % (39-51); HEMOGLOBIN 11.8 g/dL (13.5-17.5); LYMPHOCYTES # (AUTO) 2.2 K/uL (0.8-4.8); LYMPHOCYTES % (AUTO) 26.3 % (20.0-44.0); MEAN CORPUSCULAR HEMOGLOBIN 27 PG (26.0-33.0); MEAN CORPUSCULAR HGB CONC 32 g/dl (31.0-36.0); MEAN CORPUSCULAR VOLUME 85 fL (80-96); MONOCYTES # (AUTO) 1.1 K/uL (0.1-1.30); MONOCYTES % (AUTO) 12.6 % (2.0-12.0); NEUTROPHILS # (AUTO) 4.9 K/uL (1.8-8.9); NEUTROPHILS % (AUTO) 57.2 % (43.0-81.0); PLATELET COUNT (AUTO) 344 K/uL (150-450); RED BLOOD CELL COUNT(AUTO) 4.32 MIL/uL (4.5-6.0); RED CELL DISTRIBUTION WIDTH 13.6 % (11.5-15.0); WHITE BLOOD COUNT (AUTO) 8.5 K/uL (4.3-11.0)
[2024-03-25 19:34] LABS: CALCIUM, SERUM 9.8 mg/dL (8.5-10.1); CARBON DIOXIDE 25 mmol/L (21-32); CHLORIDE 104 mmol/L (98-107); CREATININE 1.2 mg/dL (0.6-1.3); GLUCOSE 109 mg/dL (74-106); POTASSIUM 3.8 mmol/L (3.5-5.1); SODIUM SERUM 141 mmol/L (136-145); UREA NITROGEN, BLOOD 17 mg/dL (7-18)
[2024-03-25 19:40] LABS: ACETAMINOPHEN 0 ug/ml (10-30); ALANINE AMINOTRANSFERASE 27 U/L (12-78); ALBUMIN 3.3 g/dL (3.4-5.0); ALCOHOL, BLOOD < 3 mg/dL (0-10); ALKALINE PHOSPHATASE 119 U/L (46-116); ASPARTATE AMINOTRANSFERASE 16 U/L (15-37); BILIRUBIN,DIRECT 0.1 mg/dL (0.0-0.2); BILIRUBIN,TOTAL 0.5 mg/dL (0.2-1.0); SALICYLATE 0.8 mg/dL (2.8-20.0); TOTAL PROTEIN, SERUM 7.4 g/dL (6.4-8.2)
[2024-03-25] MEDS ORDERED: LIDOCAINE 2% JEL UROJET 10 ML MM ONE (21:13)
[2024-03-26 10:21] VITALS: BP 129/75; TEMP 98.4; O2SAT 98
== END 2024-03-26 16:55 | disposition left against medical advice (07) ==
LOC: ER 18:36
DX: G47.00 Insomnia, unspecified (principal); F29 Unspecified psychosis not due to a substance or known physiological condition; F19.10 Other psychoactive substance abuse, uncomplicated; E11.9 Type 2 diabetes mellitus without complications; E03.9 Hypothyroidism, unspecified; F17.200 Nicotine dependence, unspecified, uncomplicated; Z59.00 Homelessness unspecified; Z79.84 Long term (current) use of oral hypoglycemic drugs; Z79.899 Other long term (current) drug therapy
CPT/HCPCS: 99283; 85025; 80048; 80076; 36415; 82962 ×4; 80143; 80320; J3490; G0480

== ENCOUNTER 2024-08-11 21:01 | Emergency (ER) | payer OTHER | END 2024-08-12 01:39 | disposition left against medical advice (07) | LOC: ER 21:07 | DX: F29 Unspecified psychosis not due to a substance or known physiological condition (principal); Z53.21 Procedure and treatment not carried out due to patient leaving prior to being seen by health care provider ==

== ENCOUNTER 2024-08-12 10:01 | Emergency (ER) | payer OTHER ==
[~2024-08-12] VITALS: Ht 175.3 cm; Wt 79.4 kg
[2024-08-12 10:36] LABS: BASOPHILS % (AUTO) 0.4 % (0.0-2.0); EOSINOPHILS # (AUTO) 0.2 K/uL (0.0-0.7); HEMATOCRIT 36 % (39-51); HEMOGLOBIN 11.2 g/dL (13.5-17.5); LYMPHOCYTES # (AUTO) 1.2 K/uL (0.8-4.8); LYMPHOCYTES % (AUTO) 12.3 % (20.0-44.0); MEAN CORPUSCULAR HEMOGLOBIN 27 PG (26.0-33.0); MEAN CORPUSCULAR HGB CONC 31 g/dl (31.0-36.0); MEAN CORPUSCULAR VOLUME 88 fL (80-96); MONOCYTES # (AUTO) 0.9 K/uL (0.1-1.30); NEUTROPHILS # (AUTO) 7.3 K/uL (1.8-8.9); NEUTROPHILS % (AUTO) 76.3 % (43.0-81.0); PLATELET COUNT (AUTO) 337 K/uL (150-450); RED BLOOD CELL COUNT(AUTO) 4.08 MIL/uL (4.5-6.0); RED CELL DISTRIBUTION WIDTH 13.8 % (11.5-15.0); WHITE BLOOD COUNT (AUTO) 9.6 K/uL (4.3-11.0)
[2024-08-12 10:48] LABS: CALCIUM, SERUM 9.1 mg/dL (8.5-10.1); CARBON DIOXIDE 29 mmol/L (21-32); CHLORIDE 106 mmol/L (98-107); CREATININE 0.9 mg/dL (0.6-1.3); GLUCOSE 195 mg/dL (74-106); POTASSIUM 4.2 mmol/L (3.5-5.1); SODIUM SERUM 142 mmol/L (136-145); UREA NITROGEN, BLOOD 10 mg/dL (7-18)
[2024-08-12 10:53] LABS: ALANINE AMINOTRANSFERASE 22 U/L (12-78); ALBUMIN 3.3 g/dL (3.4-5.0); ALKALINE PHOSPHATASE 119 U/L (46-116); ASPARTATE AMINOTRANSFERASE 9 U/L (15-37); BILIRUBIN,DIRECT 0.1 mg/dL (0.0-0.2); BILIRUBIN,TOTAL 0.4 mg/dL (0.2-1.0); TOTAL PROTEIN, SERUM 7.2 g/dL (6.4-8.2)
[2024-08-12 10:54] LABS: ACETAMINOPHEN 0 ug/ml (10-30); SALICYLATE 2.6 mg/dL (2.8-20.0)
[2024-08-12 10:55] LABS: ALCOHOL, BLOOD < 3 mg/dL (0-10)
[2024-08-12 11:38] LABS: APPEARANCE,URINE CLEAR (CLEAR); BILIRUBIN,URINE NEGATIVE (NEGATIVE); BLOOD, URINE NEGATIVE Ery/uL (NEGATIVE); COLOR,URINE YELLOW (YELLOW); KETONES,URINE NEGATIVE (NEGATIVE); LEUKOCYTE ESTERASE ,URINE NEGATIVE (NEGATIVE); NITRITE, URINE NEGATIVE (NEGATIVE); PH,URINE 5.5 (5.0-8.0); PROTEIN,URINE NEGATIVE (NEGATIVE); UGLUCOSE NEGATIVE (NEGATIVE)
[2024-08-12 11:47] LABS: AMPHETAMINE, URINE NEGATIVE (NEGATIVE); BARBITURATE, URINE NEGATIVE (NEGATIVE); BENZODIAZEPINE, URINE NEGATIVE (NEGATIVE); CANNABINOID, URINE NEGATIVE (NEGATIVE); COCCAINE, URINE POSITIVE (NEGATIVE); OPIATE, URINE NEGATIVE (NEGATIVE); PHENCYCLIDINE SCREEN,URINE NEGATIVE (NEGATIVE)
[2024-08-12 15:20] VITALS: BP 131/76; TEMP 98.4; O2SAT 100
== END 2024-08-12 15:21 | disposition home or self-care (01) ==
LOC: ER 10:01
DX: R45.851 Suicidal ideations (principal); F17.200 Nicotine dependence, unspecified, uncomplicated; F14.10 Cocaine abuse, uncomplicated; F29 Unspecified psychosis not due to a substance or known physiological condition; E11.9 Type 2 diabetes mellitus without complications; E03.9 Hypothyroidism, unspecified; Z79.899 Other long term (current) drug therapy; Z59.00 Homelessness unspecified; Z20.822 Contact with and (suspected) exposure to COVID-19
CPT/HCPCS: 36415; 80048-TC; 80076-TC; 85025-TC; G0480

== ENCOUNTER 2024-09-01 00:10 | Emergency (ER) | payer OTHER ==
[~2024-09-01] VITALS: Ht 165.1 cm; Wt 65.8 kg
[2024-09-01] MEDS: IV NS 0.9% 1,000 ML BAG IV ONE (03:31)
[2024-09-01 03:33] LABS: ABG BASE EXCESS -1.5 mmol/L (-2.0-3.0); ABG OXYGEN SATURATION 96.4 % (94.0-98.0); ABG PCO2 34.9 mmHg (35.0-48.0); ABG PH 7.425 (7.350-7.450); ABG PO2 89.9 mmHg (83.0-108.0); ABG TOTAL HEMOGLOBIN 11.5 G/dL (13.5-17.5); COHb 1.1 % (0.5-1.5); MetHb 0.2 % (0.0-1.5); O2Hb 95.1 % (94.0-97.0); SITE, ABG LEFT RADIAL
[2024-09-01 03:36] LABS: BASOPHILS % (AUTO) 0.3 % (0.0-2.0); EOSINOPHILS # (AUTO) 0.1 K/uL (0.0-0.7); EOSINOPHILS % (AUTO) 1.5 % (0.0-6.0); HEMATOCRIT 32 % (39-51); HEMOGLOBIN 10.3 g/dL (13.5-17.5); LYMPHOCYTES # (AUTO) 2.8 K/uL (0.8-4.8); LYMPHOCYTES % (AUTO) 28.2 % (20.0-44.0); MEAN CORPUSCULAR HEMOGLOBIN 28 PG (26.0-33.0); MEAN CORPUSCULAR HGB CONC 32 g/dl (31.0-36.0); MEAN CORPUSCULAR VOLUME 87 fL (80-96); MONOCYTES % (AUTO) 9.8 % (2.0-12.0); NEUTROPHILS % (AUTO) 60.2 % (43.0-81.0); PLATELET COUNT (AUTO) 364 K/uL (150-450); RED BLOOD CELL COUNT(AUTO) 3.74 MIL/uL (4.5-6.0); RED CELL DISTRIBUTION WIDTH 14.3 % (11.5-15.0)
[2024-09-01 03:43] LABS: CALCIUM, SERUM 8.3 mg/dL (8.5-10.1); CREATININE 1.1 mg/dL (0.6-1.3); POTASSIUM 4.3 mmol/L (3.5-5.1)
[2024-09-01 04:10] LABS: APPEARANCE,URINE CLEAR (CLEAR); BILIRUBIN,URINE NEGATIVE (NEGATIVE); BLOOD, URINE NEGATIVE Ery/uL (NEGATIVE); COLOR,URINE YELLOW (YELLOW); KETONES,URINE NEGATIVE (NEGATIVE); LEUKOCYTE ESTERASE ,URINE NEGATIVE (NEGATIVE); NITRITE, URINE NEGATIVE (NEGATIVE); PROTEIN,URINE NEGATIVE (NEGATIVE); UGLUCOSE 3+ mg/dL (NEGATIVE)
[2024-09-01 04:31] VITALS: BP 133/80; TEMP 98; O2SAT 98
[2024-09-01 05:09] LABS: ADD URINE CULTURE NO; BACTERIA,URINE Rare /HPF (None Seen); RBC,URINE 0-2 /HPF (0-2); SQUAMOUS EPITHELIAL CELL,UR Rare /HPF (None Seen); WBC,URINE 0-2 /HPF (0-3)
== END 2024-09-01 04:48 | disposition home or self-care (01) ==
LOC: ER 00:15
DX: E11.65 Type 2 diabetes mellitus with hyperglycemia (principal); R35.0 Frequency of micturition; R39.15 Urgency of urination; F17.200 Nicotine dependence, unspecified, uncomplicated; Z59.00 Homelessness unspecified; Z79.84 Long term (current) use of oral hypoglycemic drugs; Z79.899 Other long term (current) drug therapy
CPT/HCPCS: 99283; 96360; 82803; 85025; 80048; 82010; 81001; 36415; 82962 ×2; 36600; J7030

== ENCOUNTER 2024-09-01 20:32 | Emergency (ER) | payer OTHER | END 2024-09-02 01:09 | disposition left against medical advice (07) | LOC: ER 20:42 | DX: Z00.00 Encounter for general adult medical examination without abnormal findings (principal); Z53.21 Procedure and treatment not carried out due to patient leaving prior to being seen by health care provider ==

== ENCOUNTER 2024-10-06 18:22 | Emergency (ER) | payer OTHER ==
[~2024-10-06] VITALS: Ht 175.3 cm; Wt 79.4 kg
[2024-10-06 18:37] VITALS: TEMP 97.8
[2024-10-06] MEDS: IV NS 0.9% 1,000 ML BAG IV ONE (19:00)
[2024-10-06 19:13] LABS: BASOPHILS # (AUTO) 0.1 K/uL (0.0-0.2); EOSINOPHILS # (AUTO) 0.2 K/uL (0.0-0.7); EOSINOPHILS % (AUTO) 1.8 % (0.0-6.0); HEMATOCRIT 38 % (39-51); HEMOGLOBIN 11.9 g/dL (13.5-17.5); LYMPHOCYTES # (AUTO) 2.4 K/uL (0.8-4.8); LYMPHOCYTES % (AUTO) 28.5 % (20.0-44.0); MEAN CORPUSCULAR HEMOGLOBIN 27 PG (26.0-33.0); MEAN CORPUSCULAR HGB CONC 32 g/dl (31.0-36.0); MEAN CORPUSCULAR VOLUME 86 fL (80-96); MONOCYTES % (AUTO) 11.6 % (2.0-12.0); NEUTROPHILS # (AUTO) 4.9 K/uL (1.8-8.9); NEUTROPHILS % (AUTO) 57.1 % (43.0-81.0); PLATELET COUNT (AUTO) 346 K/uL (150-450); RED BLOOD CELL COUNT(AUTO) 4.36 MIL/uL (4.5-6.0); RED CELL DISTRIBUTION WIDTH 13.9 % (11.5-15.0); WHITE BLOOD COUNT (AUTO) 8.6 K/uL (4.3-11.0)
[2024-10-06 19:21] LABS: ACETONE, SERUM NEGATIVE (NEGATIVE)
[2024-10-06 19:23] LABS: CALCIUM, SERUM 9.3 mg/dL (8.5-10.1); CARBON DIOXIDE 26 mmol/L (21-32); CHLORIDE 101 mmol/L (98-107); CREATININE 1.2 mg/dL (0.6-1.3); POTASSIUM 4.2 mmol/L (3.5-5.1); SODIUM SERUM 137 mmol/L (136-145); UREA NITROGEN, BLOOD 14 mg/dL (7-18)
[2024-10-06 19:24] LABS: GLUCOSE 447 mg/dL (74-106)
[2024-10-06 19:27] LABS: ALANINE AMINOTRANSFERASE 18 U/L (12-78); ALBUMIN 3.7 g/dL (3.4-5.0); ALKALINE PHOSPHATASE 160 U/L (46-116); ASPARTATE AMINOTRANSFERASE 9 U/L (15-37); BILIRUBIN,TOTAL 0.1 mg/dL (0.2-1.0); TOTAL PROTEIN, SERUM 7.6 g/dL (6.4-8.2)
[2024-10-06] MEDS ORDERED: GLIP5TAB13 PO (19:42)
[2024-10-06] MEDS ORDERED: METF-440 PO (19:42)
[2024-10-06] MEDS: INSULIN REGULAR, HUMAN 100 UNIT/ML 10 ML VIAL SQ ONE (19:47)
[2024-10-06 20:45] LABS: SITE, VBG LEFT RADIAL; VBG BASE EXCESS -2.6 mmol/L (-2.0-3.0); VBG COHb 3.5 % (0.5-1.5); VBG HCO3 21.1 mmol/L (22.0-29.0); VBG MetHb 0.1 % (0.5-1.5); VBG O2Hb 93.5 % (0-79); VBG PCO2 33.2 mmHg (38.0-54.0); VBG PH 7.422 (7.320-7.430); VBG PO2 97.2 mmHg (23.0-48.0); VBG TOTAL HEMOGLOBIN 11.5 G/dL (13.5-17.5)
[2024-10-06 21:00] VITALS: BP 138/88; O2SAT 97
== END 2024-10-06 22:03 | disposition home or self-care (01) ==
LOC: ER 18:27
DX: E11.65 Type 2 diabetes mellitus with hyperglycemia (principal); R05.9 Cough, unspecified; R07.9 Chest pain, unspecified; R09.81 Nasal congestion; R35.0 Frequency of micturition; R42 Dizziness and giddiness; R68.2 Dry mouth, unspecified; F17.200 Nicotine dependence, unspecified, uncomplicated; Z59.00 Homelessness unspecified; Z79.84 Long term (current) use of oral hypoglycemic drugs; Z79.899 Other long term (current) drug therapy; Z91.148 Patient's other noncompliance with medication regimen for other reason
CPT/HCPCS: 99285; 96360; 71045; 93005; 82803; 85025; 80048; 82010; 80076; 36415; 84484; 82962 ×2; 96372; J1815

== ENCOUNTER 2024-10-10 09:36 | Emergency (ER) | payer OTHER ==
[~2024-10-10] VITALS: Ht 175.3 cm; Wt 79.4 kg
[~2024-10-10 09:36] MED LIST changes: +METF-440 PO
[2024-10-10 12:09] LABS: BASOPHILS % (AUTO) 0.6 % (0.0-2.0); EOSINOPHILS # (AUTO) 0.2 K/uL (0.0-0.7); HEMATOCRIT 43 % (39-51); HEMOGLOBIN 13.7 g/dL (13.5-17.5); LYMPHOCYTES # (AUTO) 1.8 K/uL (0.8-4.8); LYMPHOCYTES % (AUTO) 23.2 % (20.0-44.0); MEAN CORPUSCULAR HEMOGLOBIN 28 PG (26.0-33.0); MEAN CORPUSCULAR HGB CONC 32 g/dl (31.0-36.0); MEAN CORPUSCULAR VOLUME 88 fL (80-96); MONOCYTES # (AUTO) 0.9 K/uL (0.1-1.30); MONOCYTES % (AUTO) 11.2 % (2.0-12.0); NEUTROPHILS # (AUTO) 4.8 K/uL (1.8-8.9); PLATELET COUNT (AUTO) 279 K/uL (150-450); RED BLOOD CELL COUNT(AUTO) 4.91 MIL/uL (4.5-6.0); WHITE BLOOD COUNT (AUTO) 7.8 K/uL (4.3-11.0)
[2024-10-10 12:31] LABS: CALCIUM, SERUM 9.8 mg/dL (8.5-10.1); CARBON DIOXIDE 30 mmol/L (21-32); CHLORIDE 101 mmol/L (98-107); CREATININE 1.1 mg/dL (0.6-1.3); GLUCOSE 323 mg/dL (74-106); POTASSIUM 4.4 mmol/L (3.5-5.1); SODIUM SERUM 138 mmol/L (136-145); UREA NITROGEN, BLOOD 12 mg/dL (7-18)
[2024-10-10 12:45] LABS: ACETONE, SERUM NEGATIVE (NEGATIVE)
[2024-10-10] MEDS ORDERED: METF-440 PO (12:51)
[2024-10-10] MEDS ORDERED: GLIP5TAB13 PO (12:51)
[2024-10-10 13:16] VITALS: BP 118/72; TEMP 98.2; O2SAT 98
== END 2024-10-10 13:16 | disposition home or self-care (01) ==
LOC: ER 09:41
DX: E11.65 Type 2 diabetes mellitus with hyperglycemia (principal); F17.200 Nicotine dependence, unspecified, uncomplicated; Z76.0 Encounter for issue of repeat prescription; Z79.84 Long term (current) use of oral hypoglycemic drugs; Z79.899 Other long term (current) drug therapy; Z60.2 Problems related to living alone
CPT/HCPCS: 80048-TC; 82010-TC; 82962-TC; 85025-TC

== ENCOUNTER 2024-10-29 05:13 | Emergency (ER) | payer OTHER ==
[~2024-10-29] VITALS: Ht 175.3 cm; Wt 79.4 kg
[2024-10-29 06:11] LABS: BASOPHILS # (AUTO) 0.1 K/uL (0.0-0.2); BASOPHILS % (AUTO) 0.7 % (0.0-2.0); EOSINOPHILS # (AUTO) 0.2 K/uL (0.0-0.7); EOSINOPHILS % (AUTO) 3.1 % (0.0-6.0); HEMATOCRIT 36 % (39-51); HEMOGLOBIN 11.9 g/dL (13.5-17.5); LYMPHOCYTES % (AUTO) 25.6 % (20.0-44.0); MEAN CORPUSCULAR HEMOGLOBIN 28 PG (26.0-33.0); MEAN CORPUSCULAR HGB CONC 33 g/dl (31.0-36.0); MEAN CORPUSCULAR VOLUME 86 fL (80-96); MONOCYTES # (AUTO) 0.7 K/uL (0.1-1.30); MONOCYTES % (AUTO) 9.4 % (2.0-12.0); NEUTROPHILS # (AUTO) 4.7 K/uL (1.8-8.9); NEUTROPHILS % (AUTO) 61.2 % (43.0-81.0); PLATELET COUNT (AUTO) 373 K/uL (150-450); RED CELL DISTRIBUTION WIDTH 13.7 % (11.5-15.0); WHITE BLOOD COUNT (AUTO) 7.7 K/uL (4.3-11.0)
[2024-10-29 06:22] LABS: CALCIUM, SERUM 8.7 mg/dL (8.5-10.1); CARBON DIOXIDE 29 mmol/L (21-32); CHLORIDE 103 mmol/L (98-107); CREATININE 0.9 mg/dL (0.6-1.3); GLUCOSE 224 mg/dL (74-106); POTASSIUM 3.7 mmol/L (3.5-5.1); SODIUM SERUM 139 mmol/L (136-145); UREA NITROGEN, BLOOD 17 mg/dL (7-18)
[2024-10-29 06:28] LABS: ALANINE AMINOTRANSFERASE 18 U/L (12-78); ALBUMIN 3.5 g/dL (3.4-5.0); ALKALINE PHOSPHATASE 114 U/L (46-116); ASPARTATE AMINOTRANSFERASE 9 U/L (15-37); BILIRUBIN,DIRECT 0.1 mg/dL (0.0-0.2); BILIRUBIN,TOTAL 0.3 mg/dL (0.2-1.0); TOTAL PROTEIN, SERUM 7.3 g/dL (6.4-8.2)
[2024-10-29 06:33] LABS: ACETAMINOPHEN <10 ug/ml (10-30); ALCOHOL, BLOOD < 3 mg/dL (0-10); SALICYLATE 0.8 mg/dL (2.8-20.0)
[2024-10-29 11:03] LABS: APPEARANCE,URINE CLEAR (CLEAR); BILIRUBIN,URINE NEGATIVE (NEGATIVE); BLOOD, URINE NEGATIVE Ery/uL (NEGATIVE); COLOR,URINE YELLOW (YELLOW); KETONES,URINE TRACE mg/dL (NEGATIVE); LEUKOCYTE ESTERASE ,URINE NEGATIVE (NEGATIVE); NITRITE, URINE NEGATIVE (NEGATIVE); PROTEIN,URINE NEGATIVE (NEGATIVE); UGLUCOSE 2+ mg/dL (NEGATIVE)
[2024-10-29 11:12] LABS: ADD URINE CULTURE NO; BACTERIA,URINE Few /HPF (None Seen); MUCUS,URINE Few /LPF (None Seen); RBC,URINE 0-2 /HPF (0-2); SQUAMOUS EPITHELIAL CELL,UR 0-2 /HPF (None Seen)
[2024-10-29 11:48] LABS: AMPHETAMINE, URINE NEGATIVE (NEGATIVE); BARBITURATE, URINE NEGATIVE (NEGATIVE); BENZODIAZEPINE, URINE NEGATIVE (NEGATIVE); CANNABINOID, URINE NEGATIVE (NEGATIVE); COCCAINE, URINE POSITIVE (NEGATIVE); OPIATE, URINE NEGATIVE (NEGATIVE); PHENCYCLIDINE SCREEN,URINE NEGATIVE (NEGATIVE)
[2024-10-30] MEDS ORDERED: OLANZAPINE 5 MG TABLET ONE (10:04)
[2024-10-30] MEDS: OLANZAPINE 5 MG TABLET PO ONE (10:07)
[2024-10-30] MEDS ORDERED: INSULIN REGULAR, HUMAN 100 UNIT/ML 10 ML VIAL ONE (11:18)
[2024-10-30] MEDS: INSULIN REGULAR, HUMAN 100 UNIT/ML 10 ML VIAL SQ ONE (11:23)
[2024-10-30] MEDS ORDERED: LORAZEPAM 1 MG TABLET ONE (11:34)
[2024-10-30] MEDS: LORAZEPAM 4 MG/ML VIAL IV ONE (11:37)
[2024-10-30] MEDS: LORAZEPAM 1 MG TABLET PO ONE (11:37)
[2024-10-30] MEDS ORDERED: METFORMIN 500 MG TABLET ONE (11:42)
[2024-10-30] MEDS: METFORMIN 850 MG TABLET PO ONE (11:46)
[2024-10-30] MEDS: glipiZIDE 10 MG TABLET PO ONE (11:46)
[2024-10-30] MEDS: glipiZIDE 5 MG TABLET PO ONE (11:47)
[2024-10-30 14:45] VITALS: BP 132/66; TEMP 97.9; O2SAT 97
== END 2024-10-30 15:38 ==
LOC: ER 05:18
DX: R45.851 Suicidal ideations (principal); E11.9 Type 2 diabetes mellitus without complications; F17.200 Nicotine dependence, unspecified, uncomplicated; F32.A Depression, unspecified; Z56.9 Unspecified problems related to employment; Z59.00 Homelessness unspecified; Z79.84 Long term (current) use of oral hypoglycemic drugs; Z79.899 Other long term (current) drug therapy; Z60.2 Problems related to living alone; Z20.822 Contact with and (suspected) exposure to COVID-19
CPT/HCPCS: 99285; 85025; 80048; 80076; 81001; 36415; 87426; 80143; 80320; 80307; 96372; J1815; J2060; G0480